=== PATIENT | female | born 1985 | race Hispanic/Latino ===

== ENCOUNTER 2017-03-20 08:41 | Day surgery (SDC) | payer OTHER, MEDICAID ==
[2017-03-17 10:57] VITALS: BMI 28.3
[2017-03-20 09:36] VITALS: RESP 18
[2017-03-20 09:45] LABS: BASO % 0.5 % (0.0-2.0); EOS # 0.1 K/uL (0.0-0.7); EOS % 1.1 % (0.0-4.0); LYMPH # 1.6 K/uL (1.0-4.3); LYMPH % 21.6 % (20.0-40.0); MEAN CELL VOLUME 80.6 fl (81.0-99.0); MEAN CORPUSCULAR HEMOGLOBIN 25.4 pg (27.0-31.0); MEAN CORPUSCULAR HGB CONC 31.6 g/dL (33.0-37.0); MEAN PLATELET VOLUME 8.8 fl (7.2-11.7); MONO # 0.3 K/uL (0.0-0.8); MONO % 4.5 % (0.0-10.0); NEUT # 5.2 K/uL (1.8-7.0); NEUT % 72.3 % (50.0-75.0); NRBC % 0.1 % (0.0-0.0); RED CELL DISTRIBUTION WIDTH 14.7 % (11.5-14.5); WHITE BLOOD COUNT 7.2 K/uL (4.8-10.8)
[2017-03-20 09:51] LABS: BLOOD UREA NITROGEN 9 mg/dl (7-17); CALCIUM 9.3 mg/dL (8.4-10.2); CARBON DIOXIDE 25 mmol/L (22-30); CHLORIDE 107 mmol/L (98-107); GFR AFRICAN-AMERICAN > 60; GLUCOSE,RANDOM 101 mg/dL (65-105); POTASSIUM 3.9 MMOL/L (3.6-5.0); SODIUM 141 mmol/l (132-148)
[2017-03-20] MEDS ORDERED: Lactated Ringer's 1,000 ML IV ONE ×2 (10:17→12:05)
[2017-03-20] MEDS ORDERED: Midazolam 2 MG/2 ML VIAL ONE (10:52)
[2017-03-20] MEDS ORDERED: Propofol 10 mg/ml Inj (20 ML) ONE (10:52)
[2017-03-20] MEDS ORDERED: Ferric Subsulfate Sol(60 mL) ONE (11:13)
[2017-03-20] MEDS ORDERED: Strong Iodine Topical Sol. 5%-10% ONE (11:13)
[2017-03-20] MEDS ORDERED: Lidocaine 2% w Epi 1:100,000 Inj IJ ONE ×2 (11:27→11:35)
[2017-03-20] MEDS ORDERED: Strong Iodine Topical Sol. 5%-10% TOP ONE (11:30)
[2017-03-20] MEDS ORDERED: Ferric Subsulfate Sol(60 mL) TP ONE (11:40)
[2017-03-20] MEDS ORDERED: HYDROmorphone 0.5 mg/0.5 ml ISec IVP PRN (12:13)
--- NOTE | 2017-03-20 12:33 | HP ---
HISTORY OF PRESENT ILLNESS: This is a 31-year-old G3, P2, 0-1-1, last menstrual period around 02/17/2017, with a 01/09/2017 Pap smear that was ASCUS with positive HPV, who then had a colposcopy on 02/09/2017. The colposcopy revealed in the endocervical curettings that there was a suboptimally oriented dysplastic squamous mucosa consistent with high grade squamous intraepithelial lesion, cannot further classify due to suboptimal orientation of the tissue fragment. She had benign endocervical mucosa with squamous metaplasia, reactive epithelial change, acute and chronic inflammation. In her 12 o'clock biopsy there was transformation zone mucosa with a minute focus of high grade squamous intraepithelial lesion (CAROLINE 2). In her 1 o'clock biopsy, there was benign ectocervical and endocervical mucosa from transformation zone with acute and chronic inflammation, no dysplasia seen, and it was noted that the findings of the colposcopy were more marked than those of the patient's prior Pap smear. A discussion was had with the pathologist who reviewed the slides and it was recommended to proceed with a LEEP procedure. The patient is a scheduled for a LEEP today. PAST MEDICAL HISTORY: Hypoglycemia. MEDICATIONS: Lutera. PAST SURGICAL HISTORY: Primary in 07/2014 and toe surgery of the right foot in 2015. FAMILY HISTORY: Her mother is and had breast cancer. Her maternal grandmother is and was diagnosed with a stroke and heart disease. Paternal aunt is with ovarian cancer. She has a healthy daughter. SOCIAL HISTORY: The patient reports that she quit smoking about a few months ago although reports still smoking occasionally. She denies illicit drug use and reports that she drinks socially. GYNECOLOGICAL HISTORY: Her periods are every month on the OCPs, also regular when she is off the pill. She has a history of an abnormal Pap and she had a history of HPV in 2013. She has a history of chlamydia which was treated in the past. OBSTETRICAL HISTORY: She has had a vacuum-assisted vaginal delivery of a male in 03/2004. She had been induced for pre-eclampsia. There was a shoulder dystocia and the baby at 7 months. In 07/2014, she underwent a primary section for her history of the shoulder dystocia, and it was a female infant, no complications, and her third was a chemical . ALLERGIES: No known drug allergies. PHYSICAL EXAMINATION: VITAL SIGNS: Afebrile. Vital signs stable. GENERAL: The patient appears comfortable lying in bed. COLPOSCOPY: As above, patient underwent a colposcopy on 02/09/2017. The impression of the colposcopy was adequate with squamous metaplasia noted superior to the os. The findings are as above. ASSESSMENT AND PLAN: This is a 31-year-old G3, P2, 0-1-1 who has cervical intraepithelial neoplasia 2 on her colposcopy done on 02/09/2017 and is scheduled for a loop electrosurgical excision procedure today. Consents signed. All questions answered. Elo Saab MD cc: [id number] TT: 03/20/2017 12:33:31 jn MTDD
[2017-03-20 13:50] VITALS: O2SAT 98
[2017-03-20 14:21] VITALS: BP 113/50; PULSE 53; TEMP 98.3
--- NOTE | 2017-03-20 14:39 | OP ---
PROCEDURE DATE: 03/20/2017 PREOPERATIVE DIAGNOSIS: This is a 31-year-old 3, para 2-0-1-1 with cervical intraepithelial neoplasia II with normal endocervical tissue. POSTOPERATIVE DIAGNOSIS: Same PROCEDURES: Loop electrosurgical excision procedure and an endocervical curettage. SURGEON: Ana Saab MD FINDINGS: The area around the os and also to the left of the os was not staining after the Lugol's had been applied. COMPLICATIONS: None. ESTIMATED BLOOD LOSS: Less than 5 mL. DESCRIPTION OF PROCEDURE: The patient was taken to the operating room with IV running. She was placed under general anesthesia. She was then placed in dorsal lithotomy position. A time-out had been done. She was prepped and draped in the usual sterile fashion. Her bladder was emptied of clear urine with a red rubber catheter. An insulated bivalve speculum was then placed in the vagina. Lugol's was applied with the findings as noted above. A total of 8mL of 2% lidocaine with epinephrine was injected at 6, 9, 3 and 12 o'clocks. The electrosurgical generator was set to 40 frazier cutting and 50 frazier coagulation. The 5-mm ball electrode was applied to small bleeding that resulted from the injections of the lidocaine. It was decided to use the 15 mm x 12 mm loop. The loop was then carefully passed through the central portion of the transformation zone from 12 to 6 o'clock. The loop was then passed through the left side of the ectocervix followed by the right side. An ECC was then performed and sent. The base of the crater was lightly fulgurated using the 5-mm ball electrode with 50 frazier of coagulation current. AstrinGyn was applied to the cervix. Good hemostasis was noted. All instruments were then removed from the vagina. The patient tolerated the procedure well. Instruments and sponge counts were correct. Elo Saab MD cc: [id number] TT: 03/20/2017 14:38:37 kaela SALTER
--- NOTE | 2017-03-21 09:20 | CARD ---
APPROVED REPORT EKG Measurement Heart [id number] NM [id number] <Conclusion> Marked sinus bradycardia Abnormal ECG
--- NOTE | 2017-04-09 09:33 | CP.SDSHP ---
Same Day Surgery H & P - Allergies Allergies: Allergies No Known Allergies Allergy (Verified 03/20/17 09:11) Short Stay Discharge - Short Stay Discharge Admitting Diagnosis/Reason for Visit: R87.810 Disposition: HOME/ ROUTINE Referrals: FAMILY PROVIDER,NO [Primary Care Provider] - Follow-up: Pt discharged in stable condition and told to follow up in the office in 6 weeks.
== END 2017-03-20 14:34 | disposition home or self-care (01) ==
LOC: H.OPSURG 08:41
PROVIDERS: ATTEND Obstetrics & Gynecology
DX: R87.810 Cervical high risk human papillomavirus (HPV) DNA test positive (principal)